=== PATIENT | male | born 1990 | race Two or more races ===

== ENCOUNTER 2024-07-26 07:39 | Emergency (ER) | payer MEDICAID, OTHER ==
[~2024-07-26] VITALS: Ht 190.5 cm; Wt 76.6 kg
[2024-07-26] MEDS: BACITRACIN TOP OINT 1 UD PKG TOP ONE (08:00)
[2024-07-26 08:07] VITALS: TEMP 98.7
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
[2024-07-26 08:20] VITALS: RESP 13; O2SAT 95
[2024-07-26 09:25] VITALS: BP 114/60; PULSE 102; RESP 19; O2SAT 95
== END 2024-07-26 09:25 | disposition home or self-care (01) ==
LOC: ER 07:39
DX: T20.26XA Burn of second degree of forehead and cheek, initial encounter (principal); F17.210 Nicotine dependence, cigarettes, uncomplicated; X08.8XXA Exposure to other specified smoke, fire and flames, initial encounter; Y93.84 Activity, sleeping; Y92.810 Car as the place of occurrence of the external cause; Y99.8 Other external cause status
CPT/HCPCS: 16000

== ENCOUNTER 2024-12-09 04:10 | Emergency (ER) | payer MEDICAID ==
[~2024-12-09] VITALS: Ht 188 cm; Wt 82.0 kg
--- NOTE | 2024-12-09 04:36 | ED.PDOC ---
HPI Allergic reaction HPI Comments Per EMS report, patient is homeless. Endorses on sudden onset of allergic reaction, with generalized red body rash and lip swelling. No reported shortness of breath, throat swelling, or further associated symptoms. Chief Complaint: Allergic Reaction Time Seen by MD: 04:00 Reviewed Notes: Nurses Notes, Engineer/Conductor Notes, Medications, Allergies Allergies: Coded Allergies: NO KNOWN ALLERGIES (Unverified , 07/26/24) Home Meds Active Scripts Calamine-Zinc Oxide (Calamine 8-8 %) 1 Randi Randi, 1 APPLIC EX UD for 30 Days, #1 BOTTLE 0 Refills Prov:PEDROLUIS DANIEL F STUNTMAN 12/09/24 Loratadine (Loratadine) 10 Mg Tab, 10 MG PO DAILY for 30 Days, #30 TAB 0 Refills Prov:LUIS DANIEL VASQUEZ STUNTMAN 12/09/24 Methylprednisolone (Medrol Dosepak) 4 Mg Abelino, 4 MG PO UD, #21 TAB UAD Prov:LUIS DANIEL VASQUEZ STUNTMAN 12/09/24 Information Source: Patient, Emergency Med Personnel Mode of Arrival: EMS Severity: Moderate Past Medical History PAST MEDICAL HISTORY: Denies Surgical History: Denies all surgeries Family History Family History: Reviewed,noncontributory to illness, No family hx of Cancer, No family hx of DM, No family hx of Heart mitch, No family hx of HTN, No family hx ofKidney mitch, No family hx of Liver mitch, No family hx of Lung mitch, No family hx of Stroke Social History Smoker: Cigarettes Alcohol: Denies ETOH Use Drugs: Denies Drug Use Lives In: Homeless All Other Systems: Reviewed and Negative (As per HPI) Physical Exam General Appearance: No Apparent Distress, Normal HEENT: Pharynx Normal, TMs Normal, Other (Upper and lower lip edema) Neck: Full Range of Motion, Non-Tender Respiratory: Chest Non-Tender, Lungs Clear, No Accessory Muscle Use, No Respiratory Distress, Normal Breath Sounds Cardiovascular: No Edema, No JVD, No Murmur, No Gallop, Normal Peripheral Pulses, Regular Rate/Rhythm Breast Exam: Deferred Gastrointestinal: No Organomegaly, Non Tender, No Pulsatile Mass, Normal Bowel Sounds, Soft Genitalia: Deferred Pelvic: Deferred Rectal: Deferred Extremities: Normal capillary refill, Normal range of motion, No pedal edema Musculoskeletal : Apperance: Normal Neurologic: Alert, No Motor Deficits, Normal Affect, Normal Mood, No Sensory Deficits Cerebellar Function: Normal Reflexes: NOT DONE Skin: Dry, Normal Color, Rash (Diffuse urticarial rash no noted excoriations open lesions or drainage.), Warm, Other (Skin flush) Lymphatic: No Adenopathy Was a procedure done? Was a procedure done?: No Differential diagnosis (all) Differential Diagnosis: Anaphylaxis, Angioedema, Contact Dermatitis, Drug Reaction, Urticaria X-Ray, Labs, Meds, VS Vital Signs Date Time Temp Pulse Resp B/P (MAP) Pulse Ox O2 Delivery O2 Flow Rate FiO2 12/09/24 07:35 77 13 97 Room Air* 0 21 12/09/24 07:35 98.2 77 13 103/68 (80) 97 98.2 12/09/24 07:15 92 13 103/62 (76) 97 12/09/24 07:00 50 13 110/54 (72) 97 12/09/24 06:00 74 10 112/67 (82) 100 12/09/24 05:14 66 12 97 Nasal Cannula* 2 28 12/09/24 05:14 97.8 66 12 87/64 (72) 96 97.8 12/09/24 04:15 18 98 Room Air* 0 21 12/09/24 04:15 98.4 100 18 110/75 99 98.4 X-Ray, Labs, Meds, VS Comment Patient was brought to [facility] started complaining of shortness of breath difficulty breathing patient became hypotensive 73/48. Patient moved to main ER placed on monitor difficult IV access multiple attempts tried patient reports hi story of IV drug use. Patient was then given 0.3 of epi IM Solu-Medrol 125 mg IM and Benadryl 25 mg IM placed in Trendelenburg. Vital signs stabilized. Patient stable at this time continue to monitor. 07:20. Pt presents ED for an allergic reaction. Allergic medications were administered in ED for treatment. Patient reports significant improvement in symptoms following treatment. Patient was monitored in the ED for an extended amount of time. Medrol Dosepak prescribed for additional treatment. Education provided on possible side effects of medication Patient was instructed to take loratadine and use calamine lotion as needed for itchiness Follow-up with PCP in 1 to 2 days. Patient needs vocational evaluator referral for further testing Return to ED if symptoms persist, or sooner if symptoms worsen Time of 1ST Reevaluation: 04:30 Reevaluation 1ST: Unchanged Time of 2ND Reevaluation: 05:33 Reevaluation 2ND: Improved Time of 3RD Reevaluation: 07:22 Reevaluation 3RD: Improved Patient Education/Counseling: Treatment, Need For Follow Up Family Education/Counseling: No Family Present SEPSIS Sepsis Screen Date sepsis recognized/suspect: Dec 09, 2024 Time Sepsis recognized/suspect: 417 Recent Procedure: No On Antibiotic Therapy: No Respiratory Rate >20: No Heart Rate >90: Yes Temp<36 C (96.8 F) or >38.3 C: No SBP <90 or MAP <65 mmHG: No New Acute Mental Status Change: No Is the patient on CPAP, BIPAP,: No Physician Orders Heplock Iv (12/09/24 ) Heplock Iv (12/09/24 ) Vital Signs Date Time Temp Pulse Resp B/P (MAP) Pulse Ox O2 Delivery O2 Flow Rate FiO2 12/09/24 07:35 77 13 97 Room Air* 0 21 12/09/24 07:35 98.2 77 13 103/68 (80) 97 98.2 12/09/24 07:15 92 13 103/62 (76) 97 12/09/24 07:00 50 13 110/54 (72) 97 12/09/24 06:00 74 10 112/67 (82) 100 12/09/24 05:14 66 12 97 Nasal Cannula* 2 28 12/09/24 05:14 97.8 66 12 87/64 (72) 96 97.8 12/09/24 04:15 18 98 Room Air* 0 21 12/09/24 04:15 98.4 100 18 110/75 99 98.4 Departure 1 Departure Time of Disposition: 07:22 Impression: Primary Impression: Allergic reaction Qualified Codes: T78.40XA - Allergy, unspecified, initial encounter Disposition: HOME / SELF CARE / HOMELESS Condition: Stable e-Prescriptions Calamine-Zinc Oxide (Calamine 8-8 %) 1 Randi Randi 1 APPLIC EX UD for 30 Days, #1 BOTTLE 0 Refills Prov: LUIS DANIEL VASQUEZ STUNTMAN 12/09/24 Loratadine (Loratadine) 10 Mg Tab 10 MG PO DAILY for 30 Days, #30 TAB 0 Refills Prov: LUIS DANIEL VASQUEZ STUNTMAN 12/09/24 Methylprednisolone (Medrol Dosepak) 4 Mg Abelino 4 MG PO UD, #21 TAB UAD Prov: LUIS DANIEL VASQUEZ NP 12/09/24 Discharged With: Self Critical Care Note Critical Care Time?: No Stability Stability form required: No Heart Score Heart Score: Heart Score Response (Comments) Value History N/A 0 EKG N/A 0 Age N/A 0 Risk Factors N/A 0 Troponin N/A 0 Total 0 I personally scribed for ER ([email or web address]) on 12/09/24 at 04:36. Electronically submitted by Cliff Rocha ([email or web address]). ER Dec 09, 2024 04:36 DIANE CHISHOLM Dec 09, 2024 04:50 LUIS DANIEL VASQUEZ NP Dec 09, 2024 07:24
[2024-12-09 05:14] VITALS: PULSE 66; RESP 12; O2SAT 97
[2024-12-09] MEDS ORDERED: CALA1SUS2 EX (07:23)
[2024-12-09] MEDS ORDERED: METH4PAK PO (07:23)
[2024-12-09] MEDS ORDERED: LORA-1126 PO (07:23)
[2024-12-09 07:35] VITALS: BP 103/68; PULSE 77; RESP 13; TEMP 98.2; O2SAT 97
[2024-12-09] MEDS: FAMOTIDINE (10MG/ML) 2ML VL IV ONE (07:46)
[2024-12-09] MEDS: SODIUM CHLORIDE 0.9% 1,000 ML IV ONE (07:46)
[2024-12-09] MEDS: methylPREDNISolone SOD SUCC 125 MG/2 ML VL IV ONE (07:46)
[2024-12-09] MEDS: diphenhdrAMINE HCL 50 MG/1 ML VL IV ONE (07:46)
== END 2024-12-09 08:04 | disposition home or self-care (01) ==
LOC: ER 04:10 → EDBD 04:10 → ER 07:56
DX: L50.9 Urticaria, unspecified (principal); T78.40XA Allergy, unspecified, initial encounter; F17.210 Nicotine dependence, cigarettes, uncomplicated; Z59.00 Homelessness unspecified; X58.XXXA Exposure to other specified factors, initial encounter
CPT/HCPCS: 96372; 99285; J0169

== ENCOUNTER 2025-01-30 12:19 | Inpatient (IN) | payer MEDICAID ==
[~2025-01-30] VITALS: Ht 180.3 cm; Wt 79.5 kg
[~2025-01-30 12:19] MED LIST: CALA1SUS2 EX; LORA-1126 PO; METH4PAK PO
[2025-01-30 12:38] VITALS: TEMP 98.6
--- NOTE | 2025-01-30 13:34 | ED.PDOC ---
History of Present Illness HPI Comments 34 y/o M, accompanied by food safety officer presents to the ED for CC of senior living check. reports, patient is coming for routine check following, having tremors and being unresponsive to verbal stimuli. Patient states, he has had multiple delirium tremens episodes in the past d/t sever ETOH Withdrawal. Estrella ent comments, being seen at the hospital yesterday (01/29/25) for SS and ultimately leaving AMA. Patient was transferred to ED bed 19 for further care; care is ongoing at this time. Chief Complaint: [facility]ci Check Time Seen by MD: 13:30 Reviewed Notes: Nurses Notes, Medications, Allergies Allergies: Coded Allergies: NO KNOWN ALLERGIES (Unverified , 07/26/24) Home Meds Active Scripts Calamine-Zinc Oxide (Calamine 8-8 %) 1 Randi Randi, 1 APPLIC EX UD for 30 Days, #1 BOTTLE 0 Refills Prov:LUIS DANIEL VASQUEZ NP 12/09/24 Loratadine (Loratadine) 10 Mg Tab, 10 MG PO DAILY for 30 Days, #30 TAB 0 Refills Prov:LUIS DANIEL VASQUEZ RETAIL FIELD REPRESENTATIVE 12/09/24 Methylprednisolone (Medrol Dosepak) 4 Mg Abelino, 4 MG PO UD, #21 TAB UAD Prov:LUIS DANIEL VASQUEZ NP 12/09/24 Information Source: Patient Mode of Arrival: EMS Severity: Moderate Timing: Minutes Duration: Since onset Prehospital treatment: None Past Medical History PAST MEDICAL HISTORY: Denies Surgical History: Denies all surgeries Family History Family History: Reviewed,noncontributory to illness, No family hx of Cancer, No family hx of DM, No family hx of Heart mitch, No family hx of HTN, No family hx ofKidney mitch, No family hx of Liver mitch, No family hx of Lung mitch, No family hx of Stroke Social History Smoker: Cigarettes Alcohol: Denies ETOH Use Drugs: Denies Drug Use Lives In: Homeless Constitutional: denies: chills, diaphoresis, fatigue, fever, malaise, sweats, weakness, others EENTM: denies: blurred vision, double vision, ear bleeding, ear discharge, ear drainage, ear pain, ear ringing, eye pain, eye redness, hearing loss, mouth pain, mouth swelling, nasal discharge, nose bleeding, nose congestion, nose pain, photophobia, tearing, throat pain, throat swelling, voice changes, others Respiratory: denies: cough, hemoptysis, orthopnea, SOB at rest, shortness of breath, SOB with excertion, stridor, wheezing, others Cardiovascular: denies: chest pain, dizzy spells, diaphoresis, Dyspnea on exertion, edema, irregular heart beat, left arm pain, lightheadedness, palpitations, PND, syncope, others Gastrointestinal: denies: abdomen distended, abdominal pain, blood streaked bowels, constipated, diarrhea, dysphagia, difficulty swallowing, hematemesis, melena, nausea, poor appetite, poor fluid intake, rectal bleeding, rectal pain, vomiting, others Genitourinary: denies: burning, dysuria, flank pain, frequency, hematuria, incontinence, penile discharge, penile sore, pain, testicle pain, testicle swelling, urgency, others Neurological: reports: tremors; denies: dizziness, fainting, headache, left sided numbness, left sided weakness, numbness, paresthesia, pre-existing deficit, right sided numbness, right sided weakness, seizure, speech problems, tingling, weakness, others Musculoskeletal: denies: back pain, gout, joint pain, joint swelling, muscle pain, muscle stiffness, neck pain, others Integumetry: denies: bruises, change in color, change in hair/nails, dryness, laceration, lesions, lumps, rash, wounds, others Allergic/Immunocompromised: denies: Difficulty Healing, Frequent Infections, Hives, Itching, others Hematologic/Lymphatic: denies: anemia, blood clots, easy bleeding, easy bruising, swollen glands, others Endocrine: denies: excessive hunger, excessive sweating, excessive thirst, excessive urination, flushing, intolerance to cold, intolerance to heat, unexplained weight gain, unexplained weight loss, others Psychiatric: denies: anxiety, bipolar disorder, depression, hopeless, panic disorder, schizophrenia, sleepless, suicidal, others All Other Systems: Reviewed and Negative Physical Exam General Appearance: No Apparent Distress, Normal, Other (appears normal) HEENT: Normal ENT Inspection, Pharynx Normal Neck: Full Range of Motion, Non-Tender, Normal, Normal Inspection Respiratory: Chest Non-Tender, Lungs Clear, No Accessory Muscle Use, No Respiratory Distress, Normal Breath Sounds Cardiovascular: No Edema, No Murmur, No Gallop, Normal Peripheral Pulses, Regular Rate/Rhythm Breast Exam: Deferred Gastrointestinal: No Organomegaly, Non Tender, No Pulsatile Mass, Normal Bowel Sounds, Soft Genitalia: Deferred Pelvic: Deferred Rectal: Deferred Extremities: No calf tenderness, Normal capillary refill, Normal inspection, Normal range of motion, Non-tender, No pedal edema Musculoskeletal : Apperance: Normal Neurologic: Alert, manager administrative II-XII nml as Tested, No Motor Deficits, Normal Affect, Normal Mood, No Sensory Deficits Cerebellar Function: Normal Reflexes: Normal Skin: Dry, Normal Color, Warm Lymphatic: No Adenopathy Was a procedure done? Was a procedure done?: No Differential Dx Considerations may include: ETOH Intoxication, ETOH Withdrawal, Delirium Tremens X-Ray, Labs, Meds, VS Vital Signs Date Time Temp Pulse Resp B/P (MAP) Pulse Ox O2 Delivery O2 Flow Rate FiO2 01/30/25 14:07 83 18 116/58 (77) 98 01/30/25 13:05 96 18 113/76 (88) 98 01/30/25 13:01 Room Air* 0 21 01/30/25 12:38 98.6 81 20 136/64 97 98.6 Lab Test 01/30/25 14:22 Range/Units White Blood Count 6.8 4.4-10.8 10^3/uL Red Blood Count 4.79 4.5-5.90 10^6/uL Hemoglobin 13.8 13.5-17.5 g/dL Hematocrit 41.2 41.0-53.0 % Mean Corpuscular Volume 86.0 80.0-100.0 fL Mean Corpuscular Hemoglobin 28.8 28.0-32.0 pg Mean Corpuscular Hemoglobin Concent 33.4 32.0-36.0 g/dL Red Cell Distribution Width 13.3 11.8-14.3 % Platelet Count 234 140-450 10^3/uL Mean Platelet Volume 7.2 6.9-10.8 fL Neutrophils (%) (Auto) 77.4 37.0-80.0 % Lymphocytes (%) (Auto) 12.1 10.0-50.0 % Monocytes (%) (Auto) 7.7 0.0-12.0 % Eosinophils (%) (Auto) 2.1 0.0-7.0 % Basophils (%) (Auto) 0.7 0.0-2.0 % Neutrophils # (Auto) 5.2 1.6-8.6 10 ^3/uL Lymphocytes # (Auto) 0.8 0.4-5.4 10 ^3/uL Monocytes # (Auto) 0.5 0-1.3 10 ^3/uL Eosinophils # (Auto) 0.1 0-0.8 10 ^3/uL Basophils # (Auto) 0 0-0.2 10 ^3/uL Nucleated Red Blood Cells 0.2 % Sodium Level 140 136-145 mmol/L Potassium Level 4.3 3.5-5.1 mmol/L Chloride Level 103 98-107 mmol/L Carbon Dioxide Level 27 20-31 mmol/L Anion Gap 10 5-15 Blood Urea Nitrogen 10 9-23 mg/dL Creatinine 0.74 0.700-1.30 mg/dL Glomerular Filtration Rate Calc 120 >90 mL/min BUN/Creatinine Ratio 13.5 10.0-20.0 Serum Glucose 88 74-106 mg/dL Calcium Level 9.1 8.7-10.4 mg/dL Total Bilirubin 0.7 0.2-1.0 mg/dL Aspartate Amino Transferase (AST) 35 13-40 U/L Alanine Aminotransferase (ALT) 20 7-40 U/L Alkaline Phosphatase 73 46-116 U/L Total Protein 6.6 5.7-8.2 g/dL Albumin 4.2 3.2-4.8 g/dL Plasma/Serum Blood Alcohol < 3.0 <10 mg/dL Current Medications Medications (Trade) Dose Ordered Sig/Aruna Route Start Time Stop Time Status Last Admin Chlordiazepoxide HCl (Librium Capsule) 10 mg ONCE ONCE PO 01/30/25 14:00 01/30/25 14:01 DC 01/30/25 14:21 Sodium Chloride 1,000 ml @ 1,000 mls/hr Q1H ONCE IV 01/30/25 14:00 01/30/25 14:59 DC 01/30/25 14:21 Lorazepam (Ativan Inj) 2 mg ONCE ONCE IV 01/30/25 14:30 01/30/25 14:31 DC 01/30/25 14:25 X-Ray, Labs, Meds, VS Comment Patient be admitted for alcohol withdrawal with DT Patient witnessed having tremors/seizures Patient given Ativan 2 mg which did offer some mild relief Tried to have patient take p.o. Librium but was unable to swallow the pills Time of 1ST Reevaluation: 14:00 Reevaluation 1ST: Unchanged Patient Education/Counseling: Diagnosis, Treatment Family Education/Counseling: No Family Present SEPSIS Sepsis Screen Date sepsis recognized/suspect: Jan 30, 2025 Time Sepsis recognized/suspect: 1241 Recent Procedure: No On Antibiotic Therapy: No Respiratory Rate >20: No Heart Rate >90: No Temp<36 C (96.8 F) or >38.3 C: No SBP <90 or MAP <65 mmHG: No New Acute Mental Status Change: No Is the patient on CPAP, BIPAP,: No Physician Orders Head Without Contrast (01/30/25 15:24) Vital Signs Date Time Temp Pulse Resp B/P (MAP) Pulse Ox O2 Delivery O2 Flow Rate FiO2 01/30/25 14:07 83 18 116/58 (77) 98 01/30/25 13:05 96 18 113/76 (88) 98 01/30/25 13:01 Room Air* 0 21 01/30/25 12:38 98.6 81 20 136/64 97 98.6 Laboratory Tests Test 01/30/25 14:22 White Blood Count 6.8 10^3/uL (4.4-10.8) Medications Medications Dose Ordered Sig/Aruna Route Start Time Stop Time Status Last Admin Dose Admin Chlordiazepoxide HCl 10 mg ONCE ONCE PO 01/30/25 14:00 01/30/25 14:01 DC 01/30/25 14:21 Lorazepam 2 mg ONCE ONCE IV 01/30/25 14:30 01/30/25 14:31 DC 01/30/25 14:25 Sodium Chloride 1,000 ml @ 1,000 mls/hr Q1H ONCE IV 01/30/25 14:00 01/30/25 14:59 DC 01/30/25 14:21 Departure 1 Departure Time of Disposition: 16:20 Impression: Primary Impression: Alcohol abuse with withdrawal delirium Disposition: 09 ADMITTED INPATIENT Condition: Stable Discharged With: Self Critical Care Note Critical Care Time?: No Stability Stability form required: No Heart Score Heart Score: Heart Score Response (Comments) Value History N/A 0 EKG N/A 0 Age N/A 0 Risk Factors N/A 0 Troponin N/A 0 Total 0 I personally scribed for KASSANDRA WOMACK ([facility] on 01/30/25 at 13:34. Electronically submitted by Carol Barker ([email or web address]). I personally scribed for KASSANDRA WOMACK ([facility] on 01/30/25 at 13:47. Electronically submitted by Carol Barker ([email or web address]). KASSANDRA WOMACK Jan 30, 2025 13:34
[2025-01-30 14:07] VITALS: BP 116/58; PULSE 83; RESP 18; O2SAT 98
[2025-01-30] MEDS: LORazepam 2MG/ML-1ML VIAL ONE (14:12)
[2025-01-30] MEDS: SODIUM CHLORIDE 0.9% 1,000 ML IV ONE (14:21)
[2025-01-30] MEDS: LORazepam 2MG/ML-1ML VIAL IV ONE (14:25)
[2025-01-30 14:48] LABS: Hematocrit 41.2 % (41.0-53.0); Hemoglobin 13.8 g/dL (13.5-17.5); Mean Corpuscular Hemoglobin 28.8 pg (28.0-32.0); Mean Corpuscular Volume 86.0 fL (80.0-100.0); Nucleated Red Blood Cells % 0.2 %
[2025-01-30 15:23] LABS: Alanine Aminotransferase 20 U/L (7-40); Albumin 4.2 g/dL (3.2-4.8); Alkaline Phosphatase 73 U/L (46-116); Anion Gap 10 (5-15); BUN/Creatinine Ratio 13.5 (10.0-20.0); Blood Urea Nitrogen 10 mg/dL (9-23); Calcium 9.1 mg/dL (8.7-10.4); Carbon Dioxide 27 mmol/L (20-31); Chloride 103 mmol/L (98-107); Glucose 88 mg/dL (74-106); Potassium 4.3 mmol/L (3.5-5.1); Sodium 140 mmol/L (136-145); Total Protein 6.6 g/dL (5.7-8.2)
[2025-01-30 15:24] LABS: Bilirubin, Total 0.7 mg/dL (0.2-1.0)
[2025-01-30] MEDS ORDERED: LORazepam 2MG/ML-1ML VIAL IV PRN (17:15)
[2025-01-30] MEDS ORDERED: ONDANSETRON HCL 4 MG/2 ML VIAL IV PRN (17:15)
[2025-01-30] MEDS ORDERED: ACETAMINOPHEN 325 MG TAB PO PRN (17:15)
--- NOTE | 2025-01-30 17:40 | DVHHP2 ---
History of Present Illness Reason for Visit: Alcohol withdrawal History of Present Illness 34-year-old male presents for evaluation of seizure activity. Patient reports going through alcohol withdrawal over the past one-week. Today [employer] arrest of the patient for warrants and he had a seizure witnessed. He was bro ught in for evaluation. Patient is currently alert oriented x4. No oral trauma or head trauma. He reports history of seizures when going through alcohol withdrawal he is prescribed lithium but is noncompliant with the medication. Past Medical History Seizure Past Surgical History Denies Family History Noncontributory Smoke: <1 pack per day ALCOHOL: none Drugs: None Lives: with Family Review of Systems Review of Systems Review of systems are currently negative otherwise addressed in HPI. Allergies: Coded Allergies: NO KNOWN ALLERGIES (Unverified , 07/26/24) Medications Current Medications Medications Dose Ordered Sig/Aruna Route Start Time Stop Time Status Last Admin Dose Admin Folic Acid 1 mg/ Magnesium Sulfate 8 meq/ Multivitamins 10 ml/Thiamine HCl 100 mg/Sodium Chloride 1,013.2 ml @ 126.247 mls/hr DAILY@1800 INJ 01/30/25 18:00 Exam Vital Signs Vital Signs Date Time Temp Pulse Resp B/P (MAP) Pulse Ox O2 Delivery O2 Flow Rate FiO2 01/30/25 14:07 83 18 116/58 (77) 98 01/30/25 13:01 Room Air* 0 21 01/30/25 12:38 98.6 98.6 Exam Gen: 34-year-old male in no apparent distress Skin: Warm, dry, normal color and texture, no rash. HEENT: Normocephalic atraumatic, mucous membranes moist and pink. Neck: Cervical and supraclavicular nodes normal without enlargement, trachea is midline, thyroid gland is normal without masses. Pulmonary: Clear to auscultation and percussion bilaterally. Cardiac: Regular rate and rhythm. No murmur Abdomen: Soft, nontender, nondistended, bowel sounds present all 4 quadrants, no guarding, no rigidity, no organomegaly. Extremities: No cyanosis, clubbing, no edema Neuro: Cranial nerves II through XII grossly intact, normal affect and speech, no focal motor deficits. Labs/Xrays Labs Test 01/30/25 14:22 Range/Units White Blood Count 6.8 4.4-10.8 10^3/uL Red Blood Count 4.79 4.5-5.90 10^6/uL Hemoglobin 13.8 13.5-17.5 g/dL Hematocrit 41.2 41.0-53.0 % Mean Corpuscular Volume 86.0 80.0-100.0 fL Mean Corpuscular Hemoglobin 28.8 28.0-32.0 pg Mean Corpuscular Hemoglobin Concent 33.4 32.0-36.0 g/dL Red Cell Distribution Width 13.3 11.8-14.3 % Platelet Count 234 140-450 10^3/uL Mean Platelet Volume 7.2 6.9-10.8 fL Neutrophils (%) (Auto) 77.4 37.0-80.0 % Lymphocytes (%) (Auto) 12.1 10.0-50.0 % Monocytes (%) (Auto) 7.7 0.0-12.0 % Eosinophils (%) (Auto) 2.1 0.0-7.0 % Basophils (%) (Auto) 0.7 0.0-2.0 % Neutrophils # (Auto) 5.2 1.6-8.6 10 ^3/uL Lymphocytes # (Auto) 0.8 0.4-5.4 10 ^3/uL Monocytes # (Auto) 0.5 0-1.3 10 ^3/uL Eosinophils # (Auto) 0.1 0-0.8 10 ^3/uL Basophils # (Auto) 0 0-0.2 10 ^3/uL Nucleated Red Blood Cells 0.2 % Sodium Level 140 136-145 mmol/L Potassium Level 4.3 3.5-5.1 mmol/L Chloride Level 103 98-107 mmol/L Carbon Dioxide Level 27 20-31 mmol/L Anion Gap 10 5-15 Blood Urea Nitrogen 10 9-23 mg/dL Creatinine 0.74 0.700-1.30 mg/dL Glomerular Filtration Rate Calc 120 >90 mL/min BUN/Creatinine Ratio 13.5 10.0-20.0 Serum Glucose 88 74-106 mg/dL Calcium Level 9.1 8.7-10.4 mg/dL Total Bilirubin 0.7 0.2-1.0 mg/dL Aspartate Amino Transferase (AST) 35 13-40 U/L Alanine Aminotransferase (ALT) 20 7-40 U/L Alkaline Phosphatase 73 46-116 U/L Total Protein 6.6 5.7-8.2 g/dL Albumin 4.2 3.2-4.8 g/dL Plasma/Serum Blood Alcohol < 3.0 <10 mg/dL SEPSIS Sepsis Screen Date sepsis recognized/suspect: Jan 30, 2025 Time Sepsis recognized/suspect: 1 Recent Procedure: No On Antibiotic Therapy: No Respiratory Rate >20: No Heart Rate >90: No Temp<36 C (96.8 F) or >38.3 C: No SBP <90 or MAP <65 mmHG: No New Acute Mental Status Change: No Is the patient on CPAP, BIPAP,: No Physician Orders Folic Acid... (01/30/25 18:00) [place] ([place]) (01/30/25 17:13) Chlordiazepoxide Hcl Capsule (Librium Ca (01/30/25 18:00) Folic Acid Tablet (01/31/25 10:00) Lorazepam 2mg/Ml Inj (Ativan Inj) (01/30/25 17:15) Seizure Precautions In Place (01/30/25 17:13) Regular Diet (01/30/25 Dinner) [place] Carbonate (01/30/25 22:00) Admit (01/30/25 17:13) Ondansetron Hcl (Zofran) (01/30/25 17:15) Condition: Stable (01/30/25 17:13) Acetaminophen Tablet (Tylenol Tablet) (01/30/25 17:15) Bedrest With Bathroom Privileg (01/30/25 17:13) Vital Signs Date Time Temp Pulse Resp B/P (MAP) Pulse Ox O2 Delivery O2 Flow Rate FiO2 01/30/25 14:07 83 18 116/58 (77) 98 01/30/25 13:05 96 18 113/76 (88) 98 01/30/25 13:01 Room Air* 0 21 01/30/25 12:38 98.6 81 20 136/64 97 98.6 Laboratory Tests Test 01/30/25 14:22 White Blood Count 6.8 10^3/uL (4.4-10.8) Medications Medications Dose Ordered Sig/Aruna Route Start Time Stop Time Status Last Admin Dose Admin Chlordiazepoxide HCl 10 mg ONCE ONCE PO 01/30/25 14:00 01/30/25 14:01 DC 01/30/25 14:21 10 MG Lorazepam 2 mg ONCE ONCE IV 01/30/25 14:30 01/30/25 14:31 DC 01/30/25 14:25 2 MG Sodium Chloride 1,000 ml @ 1,000 mls/hr Q1H ONCE IV 01/30/25 14:00 01/30/25 14:59 DC 01/30/25 14:21 1,000 MLS/HR Assessment/Plan Assessment/Plan Assessment Alcohol withdrawal Questionable seizure activity Noncompliant Plan Admit the patient to [facility] to the hospitalist Seizure precautions in place Resume home medications CT of the brain pending Continue treatment per orders. Plan discussed with: Patient My Orders Orders - ISABELLA ESCOBAR Procedure Category Date Status Time [place] ([place]) LAB 01/30/25 Logged 17:13 Chlordiazepoxide Hcl PHA 01/30/25 Logged Capsule (Librium Ca 18:00 Folic Acid Tablet PHA 01/31/25 Logged 10:00 Lorazepam 2mg/Ml Inj PHA 01/30/25 Logged (Ativan Inj) 17:15 Seizure Precautions [place] 01/30/[address] 17:13 Regular Diet DIET 01/30/25 Transmitted Dinner [place] Carbonate PHA 01/30/25 Logged 22:00 Admit ADMIT 01/30/25 Transmitted 17:13 Ondansetron Hcl PHA 01/30/25 Logged (Zofran) 17:15 Condition: Stable [place] 01/30/25 In Process 17:13 Acetaminophen Tablet PHA 01/30/25 Logged (Tylenol Tablet) 17:15 Bedrest With Bathroom [place] 01/30/25 In Process Privileg 17:13 Date of Service: Jan 30, 2025 Billing Provider: ISABELLA ESCOBAR Common Visit Codes: [id number] INP/OBS CARE (MOD) ISABELLA ESCOBAR Jan 30, 2025 17:40
[2025-01-30] MEDS ORDERED: FOLIC ACID 1 MG, MAGNESIUM SULF SDV 50% 8 MEQ, MULTIPLE VITAMIN 10 ML, THIAMINE INJ 100... INJ SCH (18:00)
[2025-01-30] MEDS ORDERED: LITHIUM CARBONATE 300 MG TAB PO SCH (22:00)
[2025-01-31] MEDS ORDERED: FOLIC ACID 1 MG TAB PO SCH (10:00)
== END 2025-01-30 17:36 | disposition left against medical advice (07) | DRG 53 ==
LOC: EDUNIT# 12:19 → EDBD 12:19 → ER 12:19 → OVERFLOW 17:13
PROVIDERS: ADMIT Nurse Practitioner; ATTEND Nurse Practitioner
DX: R56.9 Unspecified convulsions (principal); F10.131 Alcohol abuse with withdrawal delirium; Z59.00 Homelessness unspecified; F17.210 Nicotine dependence, cigarettes, uncomplicated; Y90.9 Presence of alcohol in blood, level not specified; Z91.148 Patient's other noncompliance with medication regimen for other reason
CPT/HCPCS: 36415; 80053; 80320; 85025; 96360; G0378

== ENCOUNTER 2025-03-06 10:18 | Emergency (ER) | payer MEDICAID ==
[~2025-03-06] VITALS: Ht 182.9 cm; Wt 74.2 kg
--- NOTE | 2025-03-06 10:44 | ED.PDOC ---
Eye-HPI HPI Comments A 34 YEAR OLD MALE PRESENTS TO THE ED WITH COMPLAINT OF DENTAL PAIN. PATIENT STATES HE HAS BEEN EXPERIENCING DENTAL PAIN ON THE RIGHT UPPER SIDE OF HIS MOUTH FOR THE PAST 2 DAYS. PATIENT REPORTS HE BEGAN TO EXPERIENCE RIGHT-SIDED FACIAL SWELLING TODAY, PROMPTING HIM TO COME TO THE ED FOR EVALUATION. PATIENT DENIES FEVER, CHILLS, SHORTNESS OF BREATH, CHEST PAIN, ABDOMINAL PAIN, NAUSEA, VOMITING, HEADACHE, OR OTHER COMPLAINTS. NO OTHER SYMPTOMS OR MODIFYING FACTORS AT THIS TIME. PATIENT IS ALERT, ORIENTED X 4, AND HAS STEADY GAIT. Chief Complaint: Tooth Pain Time Seen by MD: 10:20 Reviewed Notes: Nurses Notes, Medications, Allergies Allergies: Coded Allergies: NO KNOWN ALLERGIES (Unverified , 07/26/24) Home Meds Active Scripts Calamine-Zinc Oxide (Calamine 8-8 %) 1 Randi Randi, 1 APPLIC EX UD for 30 Days, #1 BOTTLE 0 Refills Prov:LUIS DANIEL VASQUEZ NP 12/09/24 Loratadine (Loratadine) 10 Mg Tab, 10 MG PO DAILY for 30 Days, #30 TAB 0 Refills Prov:LUIS DANIEL VASQUEZ NP 12/09/24 Methylprednisolone (Medrol Dosepak) 4 Mg Abelino, 4 MG PO UD, #21 TAB UAD Prov:LUIS DANIEL VASQUEZ NP 12/09/24 Information Source: Patient Mode of Arrival: Ambulatory Timing: Days Duration: Since onset, Days Prehospital treatment: None Quality: Pain, Red Lids: Normal Conjunctiva: Normal Cornea: Normal Pupils: Normal EOM: Normal Fundus: Normal Slit lamp exam: Normal Anterior chamber: Normal Mouth Location: Right, Upper, Tooth/Teeth, Gums Mouth: Right, Upper, Premolar ENT Ear Exam: Normal, Normal, Normal Nose: Normal Sinuses: Normal Oropharynx: Normal Onset: Spontaneous Throat Exposed to: None History of: None Last Tetanus: Unknown Associated signs and symptoms: Tooth Pain Past Medical History PAST MEDICAL HISTORY: Denies Surgical History: Denies all surgeries Family History Family History: Reviewed,noncontributory to illness, No family hx of Cancer, No family hx of DM, No family hx of Heart mitch, No family hx of HTN, No family hx ofKidney mitch, No family hx of Liver mitch, No family hx of Lung mitch, No family hx of Stroke Social History Smoker: Cigarettes Alcohol: Denies ETOH Use Drugs: Denies Drug Use Lives In: Homeless Constitutional: denies: chills, diaphoresis, fatigue, fever, malaise, sweats, weakness, others EENTM: reports: mouth pain (RIGHT UPPER DENTAL PAIN); denies: blurred vision, double vision, ear bleeding, ear discharge, ear drainage, ear pain, ear ringing, eye pain, eye redness, hearing loss, mouth swelling, nasal discharge, nose bleed ing, nose congestion, nose pain, photophobia, tearing, throat pain, throat swelling, voice changes, others Respiratory: denies: cough, hemoptysis, orthopnea, SOB at rest, shortness of breath, SOB with excertion, stridor, wheezing, others Cardiovascular: denies: chest pain, dizzy spells, diaphoresis, Dyspnea on exertion, edema, irregular heart beat, left arm pain, lightheadedness, palpitations, PND, syncope, others Gastrointestinal: denies: abdomen distended, abdominal pain, blood streaked bowels, constipated, diarrhea, dysphagia, difficulty swallowing, hematemesis, me miah, nausea, poor appetite, poor fluid intake, rectal bleeding, rectal pain, vomiting, others Genitourinary: denies: burning, dysuria, flank pain, frequency, hematuria, incontinence, penile discharge, penile sore, pain, testicle pain, testicle swelling, urgency, others Neurological: denies: dizziness, fainting, headache, left sided numbness, left sided weakness, numbness, paresthesia, pre-existing deficit, right sided numbness, right sided weakness, seizure, speech problems, tingling, tremors, weakness, others Musculoskeletal: denies: back pain, gout, joint pain, joint swelling, muscle pain, muscle stiffness, neck pain, others Integumetry: denies: bruises, change in color, change in hair/nails, dryness, laceration, lesions, lumps, rash, wounds, others Allergic/Immunocompromised: denies: Difficulty Healing, Frequent Infections, Hives, Itching, others Hematologic/Lymphatic: denies: anemia, blood clots, easy bleeding, easy bruising, swollen glands, others Endocrine: denies: excessive hunger, excessive sweating, excessive thirst, excessive urination, flushing, intolerance to cold, intolerance to heat, unexplained weight gain, unexplained weight loss, others Psychiatric: denies: anxiety, bipolar disorder, depression, hopeless, panic disorder, schizophrenia, sleepless, suicidal, others All Other Systems: Reviewed and Negative Physical Exam General Appearance: No Apparent Distress, Normal HEENT: Normal ENT Inspection, PERRL/EOMI, Pharynx Normal, TMs Normal, Other (ERYTHEMA AND SWELLING ON RIGHT UPPER GUM AROUND TOOTH, DENTAL INFECTION, MILD RIGHT UPPER CHEEK SWELLING. ) Neck: Full Range of Motion, Non-Tender, Normal, Normal Inspection Respiratory: Chest Non-Tender, Lungs Clear, No Accessory Muscle Use, No Respiratory Distress, Normal Breath Sounds Cardiovascular: No Edema, No JVD, No Murmur, No Gallop, Normal Peripheral Pulses, Regular Rate/Rhythm Breast Exam: Deferred Gastrointestinal: No Organomegaly, Non Tender, No Pulsatile Mass, Normal Bowel Sounds, Soft Genitalia: Deferred Pelvic: Deferred Rectal: Deferred Extremities: No calf tenderness, Normal capillary refill, Normal inspection, Normal range of motion, Non-tender, No pedal edema Musculoskeletal : Apperance: Normal Neurologic: Alert, telephone sterilizer II-XII nml as Tested, No Motor Deficits, Normal Affect, Normal Mood, No Sensory Deficits Cerebellar Function: Normal Reflexes: Normal Skin: Dry, Normal Color, Warm Peripheral Pulses: 2+ carotid (R), 2+ carotid (L) Lymphatic: No Adenopathy Was a procedure done? Was a procedure done?: No EENT DIFF Eye: N/A Ear: Otitis Externa, Otitis Media, Dental, Pharyngitis, N/A Nose: N/A Mouth: Other (RIGHT UPPER DENTAL PAIN, DENTAL CARIES, DENTAL INFECTION, DENTAL ABSCESS, GINGIVITIS) Sore Throat: N/A X-Ray, Labs, Meds, VS Vital Signs Date Time Temp Pulse Resp B/P (MAP) Pulse Ox O2 Delivery O2 Flow Rate FiO2 03/06/25 10:49 98.2 03/06/25 10:19 97.9 100 20 132/79 99 97.9 Current Medications Medications (Trade) Dose Ordered Sig/Aruna Route Start Time Stop Time Status Last Admin Ceftriaxone Sodium (Rocephin) 1,000 mg ONCE ONCE IM 03/06/25 10:45 03/06/25 10:46 DC 03/06/25 10:49 Ibuprofen (Motrin Tablet) 800 mg ONCE ONCE PO 03/06/25 10:45 03/06/25 10:46 DC 03/06/25 10:49 X-Ray, Labs, Meds, VS Comment EXTERNAL MEDICAL RECORDS REVIEWED: [NONE] INDEPENDENT HISTORIANS: [NONE] SOCIAL DETERMINANTS OF HEALTH: PATIENT IS CURRENTLY HOMELESS. LABS ORDERED: NONE REVIEWED AND INTERPRETED RESULTS: NONE IMAGING ORDERED: NONE TREATMENTS ORDERED: ROCEPHIN 1 G IM, MOTRIN 800 MG P.O., PATIENT DECLINED IV TREATMENT HERE IN THE ED AND WOULD PREFER AN INJECTION AND ORAL MEDICATION. PROCEDURES PERFORMED: NONE CRITICAL CARE TIME: NONE I HAVE DISCUSSED THE PATIENT WITH THE ATTENDING PHYSICIAN DR. SEVILLA AND HE AGREES WITH THE PATIENT'S PLAN OF CARE AND DISPOSITION. BASED ON HISTORY OF PRESENT ILLNESS, AND PHYSICAL EXAM, PATIENT WILL BE DISCHARGED HOME. DISCUSSED PLAN FOR DISCHARGE HOME WITH RX [CLINDAMYCIN AND IBUPROFEN 800 MG]. MEDICATION WARNINGS GIVEN. SHARED DECISION MAKING: PATIENT INSTRUCTED TO FOLLOW UP WITH PRIMARY CARE PROVIDER IN 1-2 DAYS FOR RE-EVALUATION OF SYMPTOMS. PATIENT VERBALIZES UNDERSTANDING TO RETURN TO ED FOR NEW OR WORSENING SYMPTOMS OR IF FOLLOW UP WITH PCP CANNOT BE OBTAINED. PATIENT FEELS COMFORTABLE GOING HOME AT THIS TIME. ALL QUESTIONS ADDRESSED AT TIME OF DISCHARGE. Time of 1ST Reevaluation: 11:10 Reevaluation 1ST: Improved Patient Education/Counseling: Diagnosis, Treatment, Need For Follow Up Family Education/Counseling: Diagnosis, Treatment, Need For Follow Up Medical Screening: No EMC Exist At This Time SEPSIS Sepsis Screen Date sepsis recognized/suspect: Mar 06, 2025 Time Sepsis recognized/suspect: 1021 Recent Procedure: No On Antibiotic Therapy: No Respiratory Rate >20: No Heart Rate >90: Yes Temp<36 C (96.8 F) or >38.3 C: No SBP <90 or MAP <65 mmHG: No New Acute Mental Status Change: No Is the patient on CPAP, BIPAP,: No Vital Signs Date Time Temp Pulse Resp B/P (MAP) Pulse Ox O2 Delivery O2 Flow Rate FiO2 03/06/25 10:49 98.2 03/06/25 10:19 97.9 100 20 132/79 99 97.9 Medications Medications Dose Ordered Sig/Aruna Route Start Time Stop Time Status Last Admin Dose Admin Ceftriaxone Sodium 1,000 mg ONCE ONCE IM 03/06/25 10:45 03/06/25 10:46 DC 03/06/25 10:49 Ibuprofen 800 mg ONCE ONCE PO 03/06/25 10:45 03/06/25 10:46 DC 03/06/25 10:49 Departure 1 Departure Time of Disposition: 11:20 Impression: Primary Impression: Dental infection Disposition: HOME / SELF CARE / HOMELESS Condition: Stable Additional Instructions: FOLLOW-UP WITH PCP AND DENTIST IN 1 TO 2 DAYS. TAKE MEDICATIONS PRESCRIBED. RETURN TO ED FOR ANY NEW OR WORSENING SYMPTOMS. e-Prescriptions Ibuprofen (Ibuprofen) 800 Mg Tab 1 TAB PO TID, #30 TAB Prov: JAMEY DUQUE 03/06/25 Clindamycin Hcl (Clindamycin Hcl) 300 Mg Cap 300 MG PO QID for 10 Days, #40 CAP Prov: JAMEY DUQUE 03/06/25 Discharged With: Self Critical Care Note Critical Care Time?: No Stability Stability form required: No I personally scribed for JAMEY DUQUE ([email or web address]) on 03/06/25 at 10:44. Electronically submitted by Michael Buenrostro ([email or web address]). JAMEY DUQUE Mar 06, 2025 10:44
[2025-03-06] MEDS: IBUPROFEN 800 MG TAB PO ONE (10:49)
[2025-03-06] MEDS: cefTRIAXone SOD 1,000 MG VL IM ONE (10:49)
[2025-03-06] MEDS ORDERED: CLIN1CAP70 PO (10:58)
[2025-03-06] MEDS ORDERED: IBUP-1456 PO (10:58)
[2025-03-06 11:02] VITALS: BP 128/74; PULSE 100; RESP 18; O2SAT 98
[2025-03-06 11:04] VITALS: TEMP 98
== END 2025-03-06 10:59 | disposition home or self-care (01) ==
LOC: ER 10:18
DX: K04.7 Periapical abscess without sinus (principal); F17.210 Nicotine dependence, cigarettes, uncomplicated; Z59.00 Homelessness unspecified; Z79.899 Other long term (current) drug therapy
CPT/HCPCS: 96372; 99283; J0696